=== PATIENT | female | born 2005 | race Caucasian/White ===

== ENCOUNTER 2023-02-18 18:56 | Emergency (ER) | payer OTHER ==
[2023-02-18 19:29] LABS: RAPID STREP SCREEN Negative (Negative)
--- NOTE | 2023-02-18 19:38 | XRAY Report ---
PROCEDURE: Chest 2 View X-Ray INDICATIONS: productive cough and SOA TECHNIQUE: 2 views of the chest were acquired. COMPARISON: None. FINDINGS: Surgical changes and devices: None. Lungs and pleura: No pleural effusions or pneumothorax. Lungs are clear. Mediastinum: Mediastinal contours appear normal. Heart size is normal. Bones and chest wall: No suspicious bony lesions. Overlying soft tissues appear unremarkable. IMPRESSION: No acute cardiopulmonary process. Reviewed by: Paddy Rizvi on 02/18/2023 7:36 PM PDT Approved by: Paddy Rizvi on 02/18/2023 7:36 PM PDT Station ID: [id number]
--- NOTE | 2023-02-18 19:40 | ED Physician Documentation ---
History of Present Illness - Stated complaint Stated Complaint: SOA/FEVER/SORE THROAT - Chief complaint Chief Complaint: Resp - History obtained from History obtained from: Patient - Additonal information Additional information: Previously healthy 17-year-old has been sick since early yesterday morning with cough productive of clear to green to pinkish sputum, shortness of breath, fever to 102, and sore throat. Tried variety of OTC remedies without much relief at home. No sick contacts or recent travel. PD PAST MEDICAL HISTORY - Present Medications Home Medications: Ambulatory Orders Medication Instructions Recorded Confirmed Albuterol Sulf [Ventolin Hfa 1 - 2 puffs INH Q4HR PRN #1 each 02/18/23 Inhaler] Benzonatate [Tessalon] 200 mg PO TID PRN #20 cap 02/18/23 Meloxicam [Mobic] 7.5 mg PO BID PRN #20 tablet 02/18/23 - Allergies Allergies/Adverse Reactions: Allergies Allergy/AdvReac Type Severity Reaction Status Date / Time No Known Drug Allergies Allergy Verified 02/18/23 19:05 PD ED PE NORMAL - Vitals Vital signs reviewed: Yes - General General: Alert and oriented X 3, No acute distress - HEENT HEENT: Other (Very red tonsillar pillars, no exudates, no adenopathy) - Neck Neck: Supple, no meningeal sign, No bony TTP - Cardiac Cardiac: RRR, No murmur - Respiratory Respiratory: No respiratory distress, Clear bilaterally - Abdomen Abdomen: Non tender - Derm Derm: No rash - Neuro Neuro: Alert and oriented X 3, Normal speech Results - Vitals Vitals: Vital Signs - 24 hr 02/18/23 02/18/23 02/18/23 19:01 19:50 20:29 Temperature 36.7 C Heart Rate 108 H 98 116 H Respiratory 24 24 18 Rate Blood Pressure 127/61 117/64 O2 Saturation 100 100 Oxygen O2 Source Room air - Labs Labs: Laboratory Tests 02/18/23 02/18/23 19:09 19:09 SARS-CoV-2 (PCR) NOT DETECTED Group A Strep Rapid Negative - Rads (name of study) 2 view chest x-ray is unremarkable Relevant Findings:: Final report received, EMP independent interpretation of test PD Medical Decision Making - ED course ED course: 17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 Strep and COVID-negative with clear chest x-ray here. Feeling modestly better after Tylenol, ibuprofen, and albuterol neb. Departure - Departure Disposition: 01 Home, Self Care Clinical Impression: Viral respiratory infection Condition: Good Record reviewed to determine appropriate education?: Yes Instructions: ED Viral Syndrome Prescriptions: Albuterol Sulf [Ventolin Hfa Inhaler] 1 - 2 puffs INH Q4HR PRN #1 each PRN Reason: Shortness Of Air/Wheezing Meloxicam [Mobic] 7.5 mg PO BID PRN #20 tablet PRN Reason: Pain Benzonatate [Tessalon] 200 mg PO TID PRN #20 cap PRN Reason: Cough Comments: Strep and COVID test were negative. We will perform with throat culture and call you with any positive results. In the meantime [place] [facility] Return for new or worsening symptoms, follow-up with your flight surgeon midweek if not improved. Forms: Activity restrictions
[2023-02-18] MEDS: ALBUTEROL NEB 2.5 MG/3 ML INH STA (19:50)
[2023-02-18] MEDS: ACETAMINOPHEN 325 MG TABLET PO STA (20:15)
[2023-02-18] MEDS: IBUPROFEN 400 MG TABLET PO STA (20:20)
[2023-02-18 21:21] VITALS: BP 111/64; O2SAT 99
--- NOTE | 2023-02-21 21:43 | ED Physician Documentation ---
ED Addendum - Addendum Addendum: 02/21/23 21:42 . Patient's strep culture came back positive therefore I sent electronic prescription for amoxicillin to [facility] [facility]. staff registered nurse will call the patient to inform him.
== END 2023-02-18 21:19 | disposition home or self-care (01) ==
LOC: ED 18:56
DX: J02.0 Streptococcal pharyngitis (principal); Z20.822 Contact with and (suspected) exposure to COVID-19
CPT/HCPCS: 87070; 87077; 87430; 87635; 94640; 94664; 99284